=== PATIENT | female | born 1970 | race Caucasian/White ===

== ENCOUNTER 2025-02-11 05:41 | Inpatient (IN) | payer OTHER ==
[2025-02-11] MEDS ORDERED: METHOCARBAMOL 1,000 MG/10 ML VIAL ONE (06:14)
[2025-02-11] MEDS ORDERED: LEVALBUTEROL 1.25 MG/3 ML NEB ONE ×2 (06:14→06:46)
[2025-02-11] MEDS ORDERED: IPRATROPIUM BROM 0.5MG/2.5ML ONE (06:14)
[2025-02-11] MEDS ORDERED: FENTANYL CITR 100 MCG/2 ML ONE (06:14)
[2025-02-11] MEDS ORDERED: NA CHLORIDE 0.9% 100 ML ONE (06:15)
[2025-02-11 06:23] LABS: Absolute Lymphocytes (CBC) 2.6 K/uL (0.7-4.9); Hematocrit 43.0 % (36.0-45.0); Hemoglobin 14.5 g/dL (12.0-15.0); MCH 30.5 pg (27.0-35.0); MCHC 33.7 g/dL (32.0-36.0); MCV 90.4 fL (80-100); MPV 8.7 fL (7.6-11.3); Nucleated RBC Absolute Count 0.0 (0-0); Nucleated Red Blood Cells % 0.0 % (0-0); RBC Red Blood Cell Count 4.76 M/uL (3.86-4.86); White Blood Count 6.70 thou/uL (4.3-10.9)
[2025-02-11 06:33] LABS: D-Dimer 0.53 FEUug/mL (0-0.500); PT Prothrombin Time 11.2 SECONDS (10-13.0); Protime INR 0.99
--- NOTE | 2025-02-11 06:45 | EDPHYS ---
Physician Documentation [facility] Name: Irma Ackerman Age: 54 yrs Sex: Female : 1970 Arrival Date: 02/11/2025 Time: 05:41 Bed 8 Private MD: KATHLEEN Physician Kendall Villeda HPI: 02/11 06:02 This 54 yrs old Female presents to ER via EMS with complaints of Pain - right rib. cp 06:03 The patient or guardian reports chest pain that is located primarily in the left cp lateral lower chest and left flank. Onset: yesterday, and became worse this morning. Associated signs and symptoms: Pertinent positives: abdominal pain, shortness of breath. The chest pain is described as sharp. Duration: The patient or guardian reports a single episode, that is still ongoing. Modifying factors: the symptoms are aggravated by breathing, movement. Patient reports trip and fall onto [place] [employer] in yard 2 weeks ago while carrying furniture. No LOC. Patient did not seek medical attention after fall. Historical: - Allergies: 06:01 No Known Allergies; vc1 - Home Meds: 06:01 None [Active]; vc1 - PMHx: 06:01 None; vc1 - PSHx: 06:01 None; vc1 - Immunization history:: Client reports receiving the 2nd dose of the Covid vaccine. - Infectious Disease History:: Denies. - Social history:: Smoking status: Patient reports the use of cigarette tobacco products, smokes one-half pack cigarettes per day. ROS: 06:05 Constitutional: Negative for body aches, chills, fever, cp 06:05 Eyes: Negative for injury, pain, redness, and discharge, cp 06:05 ENT: Negative for drainage from ear(s), ear pain, sore throat, difficulty swallowing, 06:05 Cardiovascular: Positive for left lateral lower chest wall pain, Negative for edema, 06:05 Respiratory: Positive for shortness of breath, Negative for wheezing, 06:05 Abdomen/GI: Positive for abdominal pain, of the posterior aspect of left lateral abdomen and anterior aspect of left lateral abdomen, Negative for vomiting, diarrhea, constipation, 06:05 Back: Positive for flank pain, on the left, 06:05 : Negative for urinary symptoms, 06:05 Skin: Negative for cellulitis, rash, 06:05 Neuro: Negative for altered mental status, headache, weakness, 06:05 All other systems are negative, Exam: 06:10 Constitutional: The patient appears in no acute distress, alert, awake, cp non-diaphoretic, non-toxic, well developed, well nourished, in obvious pain, uncomfortable, 06:10 Head/Face: Normocephalic, atraumatic. cp 06:10 Eyes: Periorbital structures: appear normal, Conjunctiva: normal, no exudate, no injection, Sclera: no appreciated abnormality, Lids and lashes: appear normal, bilaterally, 06:10 ENT: External ear(s): are unremarkable, Nose: is normal, Mouth: Lips: moist, Oral mucosa: moist, Posterior pharynx: Airway: no evidence of obstruction, patent, 06:10 Neck: C-spine: vertebral tenderness, is not appreciated, crepitus, is not appreciated, ROM/movement: limited range of motion, is not appreciated, 06:10 Chest/axilla: Inspection: normal, Palpation: crepitus, is not appreciated, tenderness, that is moderate, of the left lower lateral chest wall, 06:10 Cardiovascular: Rate: normal, 06:10 Respiratory: the patient does not display signs of respiratory distress, Respirations: shallow respirations, that is moderate, Breath sounds: bronchial sounds, that are mild, are heard diffusely, stridor, is not appreciated, wheezing: that is mild, is heard diffusely, 06:10 Abdomen/GI: Inspection: abdomen appears normal, Bowel sounds: active, all quadrants, Palpation: soft, in all quadrants, moderate abdominal tenderness, in the posterior aspect of left lateral abdomen, anterior aspect of left lateral abdomen and left upper quadrant, rebound tenderness, is not appreciated, involuntary guarding, is not appreciated, 06:10 Back: pain, that is severe, of the left mid back, ROM is painful, with all movement, 06:10 Neuro: Orientation: to person, place \T\ time. Mentation: able to follow commands, Motor: moves all fours, strength is normal, 07:00 ECG was reviewed by the Attending Physician. dexter Vital Signs: 06:04 BP 114 / 75; Pulse 90; Resp 14; Pulse Ox 96% ; Weight 74.84 kg; Height 5 ft. 5 in. ; vc1 Pain 6/10; 06:35 Temp 98.4(O); ha1 06:04 Body Mass Index 27.46 (74.84 kg, 165.1 cm) vc1 06:04 Pain Scale: Adult vc1 MDM: 05:51 Medical Screening Exam initiated cp 06:16 Differential diagnosis: acute myocardial infarction, acute pericarditis, chest wall cp pain, pneumonia, pneumothorax, pulmonary embolus, rib fracture. 06:20 Transition of care: After a detail discussion of the patient's case, care is cp transferred to Kendall Villeda MD. 06:20 Awaiting: labs results, CT scan results. cp 06:36 Differential diagnosis: Blunt Chest Trauma Chest Wall Contusion. Data reviewed: vital dexter signs, nurses notes, lab test result(s), EKG, radiologic studies. Consideration of Admission/Observation Patient was admitted/placed on observation. Escalation of care including admission/observation considered. I considered the following discharge prescriptions or medication management in the emergency department Medications were administered in the Emergency Department. See MAR. Independent interpretation of the following test(s) in the Emergency Department EKG: See my EKG interpretation above. Test considered but Not performed: Ultrasound no abd usg. Historians other than the Patient: Spouse/Significant Other: well informed. Care significantly affected by the following chronic conditions: Chronic Obstructive Pulmonary Disease, tobacco abuse. Counseling: I had a detailed discussion with the patient and/or guardian regarding the historical points, exam findings, and any diagnostic results supporting the discharge/admit diagnosis, lab results, radiology results, the need for further work-up and treatment in the hospital. 02/11 06:00 Order name: Basic Metabolic Panel; Complete Time: 07:00 cp 02/11 06:00 Order name: CBC with Diff; Complete Time: 07:00 cp 02/11 06:00 Order name: D-Dimer; Complete Time: 07:00 cp 02/11 06:00 Order name: LFT's; Complete Time: 07:00 02/11 06:00 Order name: Magnesium; Complete Time: 07:00 02/11 06:00 Order name: NT PRO-BNP; Complete Time: 07:00 02/11 06:00 Order name: PT-INR; Complete Time: 07:00 02/11 06:00 Order name: Troponin HS; Complete Time: 07:00 02/11 06:00 Order name: Lipase; Complete Time: 07:00 cp 02/11 06:38 Order name: CPK dexter 02/11 07:29 Order name: CBC with Automated Diff EDMS 02/11 07:29 Order name: CBC with Automated Diff EDMS 02/11 07:29 Order name: CBC with Automated Diff EDMS 02/11 07:29 Order name: Comprehensive Metabolic Panel EDMS 02/11 07:29 Order name: Comprehensive Metabolic Panel EDMS 02/11 07:29 Order name: Comprehensive Metabolic Panel EDMS 02/11 06:00 Order name: XRAY Chest (1 view) 02/11 06:09 Order name: CT Chest For PE Angio 02/11 06:09 Order name: CT Abd/Pelvis - IV Contrast Only 02/11 06:16 Order name: INCENTIVE SPIROMETRY [facility] 02/11 06:00 Order name: Cardiac monitoring; Complete Time: 06:31 02/11 06:00 Order name: EKG - Nurse/Tech; Complete Time: 06:31 02/11 06:00 Order name: IV Saline Lock; Complete Time: 06:31 02/11 06:00 Order name: Labs collected and sent; Complete Time: 06:31 02/11 06:00 Order name: O2 Per Protocol; Complete Time: 06:31 02/11 06:00 Order name: O2 Sat Monitoring; Complete Time: 06:31 cp EC:00 Rate is 78 beats/min. Rhythm is regular. QRS Swiss is Normal. NM interval is normal. QRS dexter interval is normal. QT interval is normal. No Q waves. T waves are Normal. No ST changes noted. Clinical impression: Normal ECG and No evidence of ischemia. Interpreted by me. Reviewed by me. Administered Medications: 06:20 Drug: fentaNYL (PF) IVP 25 mcg IVP once Route: IVP; Site: right forearm; ha1 06:55 Follow up: Response: No adverse reaction; Pain is decreased kd3 06:22 Drug: Methocarbamol IVPB 1 grams IVPB once over 1 hrs; (mix in NS 100 mL) Route: IVPB; ha1 Infused Over: 1 hrs; Site: right forearm; 06:55 Follow up: IV Status: Completed infusion kd3 06:31 Drug: Levalbuterol Inhalation 1.25 mg Inhalation once Route: Inhalation; ha1 06:55 Follow up: Response: No adverse reaction kd3 06:31 Drug: Ipratropium Inhalation Aerosol 0.5 mg Inhalation once Route: Inhalation; ha1 06:55 Follow up: Response: No adverse reaction kd3 06:54 Drug: Famotidine IVP 20 mg IVP once; dilute with 10 mL 0.9% NaCl; give over 2 minutes kd3 Route: IVP; Site: right forearm; 06:55 Drug: Levalbuterol Inhalation 2.5 mg Inhalation once Route: Inhalation; kd3 06:55 Drug: NS 0.9% IV 1000 ml IV at 1 bolus Per protocol; to be given as a bolus over 60 kd3 minutes Route: IV; Rate: 1 bolus; Site: right forearm; 06:55 Drug: Ketorolac IVP 15 mg IVP once Route: IVP; Site: right forearm; kd3 06:55 Drug: Diazepam PO 10 mg PO once Route: PO; kd3 06:58 Drug: MethylPrednisoLONE IVP 125 mg IVP once Route: IVP; Site: right forearm; kd3 Disposition: 06:36 Co-signature as Attending Physician, Kendall Villeda MD I agree with the assessment and dexter plan of care. Disposition Summary: 02/11/25 06:44 Hospitalization Ordered Notes: Hospitalization Status: Inpatient Admission dexter Provider: Penelope Lockhart cha Location: Telemetry/MedSurg (Inpatient) dexter Condition: Fair dexter Problem: new dexter Symptoms: have improved dexter Bed/Room Type: Standard dexter Room Assignment: 419(02/11/25 08:33) bd Diagnosis - Fall on same level, unspecified dexter - Strain of muscle and tendon of front wall of thorax dexter - Strain of muscle and tendon of back wall of thorax dexter - COPD/ Chronic obstructive pulmonary disease with (acute) exacerbation dexter - Tobacco abuse counseling dexter - Tobacco use dexter Forms: - Medication Reconciliation Form dexter - SBAR form dexter - Leadership Thank You Letter dexter Signatures: Dispatcher [employer] Mahnaz Bentley Corey, MD MD cha Page, Corey, PA-C PA-C cp Doucette, Kyli RN RN kd3 Elena Koo RN RN vc1 Zaynab Juares RN RN ha1 Corrections: (The following items were deleted from the chart) 06:38 06:38 CREATINE PHOSPHOKINASE+C.LAB.BRZ ordered. EDMS EDMS 08:33 06:44 dexter bd
--- NOTE | 2025-02-11 06:45 | ER ---
Nurse's Notes [facility] Name: Irma Ackerman Age: 54 yrs Sex: Female : 1970 Arrival Date: 02/11/2025 Time: 05:41 Bed 8 Private MD: Diagnosis: Fall on same level, unspecified;Strain of muscle and tendon of front wall of thorax;Strain of muscle and tendon of back wall of thorax;COPD/ Chronic obstructive pulmonary disease with (acute) exacerbation;Tobacco abuse counseling;Tobacco use Presentation: 02/11 05:57 Chief complaint: EMS states: right rib pain with muscle spasms. Pt fell 2 weeks ago. vc1 Coronavirus screen: Client denies travel out of the [place] in the last 14 days. At this time, the client does not indicate any symptoms associated with coronavirus-19. Ebola Screen: Patient negative for fever greater than or equal to 101.5 degrees Fahrenheit, and additional compatible Ebola Virus Disease symptoms Patient denies exposure to infectious person. Patient denies travel to an Ebola-affected area in the 21 days before illness onset. No symptoms or risks identified at this time. Initial Sepsis Screen: Does the patient meet any 2 criteria? No. Patient's initial sepsis screen is negative. Does the patient have a suspected source of infection? No. Patient's initial sepsis screen is negative. Risk Assessment: Do you want to hurt yourself or someone else? Patient reports no desire to harm self or others. Onset of symptoms is unknown. Care prior to arrival: Medication(s) given: 5mg droperidol IV initiated. 20 GA, in the right wrist. 05:57 Method Of Arrival: EMS: [facility] vc1 05:57 Acuity: SHANNAN 3 vc1 Triage Assessment: 06:02 General: Appears in no apparent distress. uncomfortable, Behavior is calm, cooperative, vc1 appropriate for age. Pain: Complains of pain in right lateral anterior chest Pain does not radiate. Pain currently is 6 out of 10 on a pain scale. EENT: No deficits noted. No signs and/or symptoms were reported regarding the EENT system. Neuro: Level of Consciousness is awake, alert, obeys commands, Oriented to person, place, time, situation, Appropriate for age. Cardiovascular: Capillary refill < 3 seconds Patient's skin is warm and dry. Respiratory: Airway is patent Respiratory effort is even, unlabored, Respiratory pattern is regular, symmetrical. GI: No deficits noted. No signs and/or symptoms were reported involving the gastrointestinal system. : No deficits noted. No signs and/or symptoms were reported regarding the genitourinary system. Derm: Skin is intact, is healthy with good turgor, Skin is dry, Skin is normal, Reports pain that is 6 out of 10 on a pain scale. Musculoskeletal: Circulation, motion, and sensation intact. Reports pain in left lateral anterior chest. Historical: - Allergies: 06:01 No Known Allergies; vc1 - Home Meds: 06:01 None [Active]; vc1 - PMHx: 06:01 None; vc1 - PSHx: 06:01 None; vc1 - Immunization history:: Client reports receiving the 2nd dose of the Covid vaccine. - Infectious Disease History:: Denies. - Social history:: Smoking status: Patient reports the use of cigarette tobacco products, smokes one-half pack cigarettes per day. Screenin:01 [facility] ED Fall Risk Assessment (Adult) History of falling in the last 3 months, vc1 including since admission No falls in past 3 months (0 pts) Confusion or Disorientation No (0 pts) Intoxicated or Sedated No (0 pts) Impaired Gait No (0 pts) Mobility Assist Device Used No (0 pt) Altered Elimination No (0 pt) Score/Fall Risk Level 0 - 2 = Low Risk Oriented to surroundings, Maintained a safe environment, Educated pt \T\ family on fall prevention, incl call for assistance when getting out of bed, Assessed \T\ reinforced patient's understanding of fall precautions, Hourly rounding (assess needs \T\ fall precautionary measures) done. Abuse screen: Denies threats or abuse. Nutritional screening: No deficits noted. Tuberculosis screening: No symptoms or risk factors identified. Assessment: 05:49 General: Appears uncomfortable, Behavior is calm, cooperative. Pain: Complains of pain ha1 in back Pain currently is 9 out of 10 on a pain scale. Quality of pain is described as aching, Aggravated by increased activity, repositioning. Neuro: Level of Consciousness is awake, alert, obeys commands, Oriented to person, place, time, situation. Cardiovascular: Capillary refill < 3 seconds Patient's skin is warm and dry. Respiratory: Reports cough that is productive, Airway is patent Respiratory effort is even, unlabored, Respiratory pattern is regular, symmetrical. GI: Abdomen is round non-distended. : No signs and/or symptoms were reported regarding the genitourinary system. Derm: Skin is pink, warm \T\ dry. Musculoskeletal: Circulation, motion, and sensation intact. Reports pain in back. Vital Signs: 06:04 BP 114 / 75; Pulse 90; Resp 14; Pulse Ox 96% ; Weight 74.84 kg; Height 5 ft. 5 in. ; vc1 Pain 6/10; 06:35 Temp 98.4(O); ha1 06:04 Body Mass Index 27.46 (74.84 kg, 165.1 cm) vc1 06:04 Pain Scale: Adult vc1 ED Course: 05:49 Patient arrived in ED. kmf 05:49 Patient has correct armband on for positive identification. Bed in low position. Call ha1 light in reach. Side rails up X 1. Adult w/ patient. Client placed on continuous cardiac and pulse oximetry monitoring. NIBP monitoring applied. braid folder on. Door closed. Noise minimized. Warm blanket given. Pillow given. 05:51 Kendall Castillo PA-C is PHCP. cp 05:51 Kendall Villeda MD is Attending Physician. cp 05:59 Triage completed. vc1 06:01 Arm band placed on right wrist. vc1 06:04 Maintain EMS IV. Dressing intact. Good blood return noted. Site clean \T\ dry. Gauge \T\ noguera 1 site: 20 G RFA. Flushed with 10 mL NS. 06:09 Zaynab Juares RN is Primary Nurse. ha1 06:30 XRAY Chest (1 view) In Process Unspecified. EDMS 06:31 Basic Metabolic Panel Sent. ha1 06:43 Penelope Lockhart MD is Hospitalizing Provider. dexter 07:30 CT Chest For PE Angio In Process Unspecified. EDMS 07:30 CT Abd/Pelvis - IV Contrast Only In Process Unspecified. EDMS Administered Medications: 06:20 Drug: fentaNYL (PF) IVP 25 mcg IVP once Route: IVP; Site: right forearm; ha1 06:55 Follow up: Response: No adverse reaction; Pain is decreased kd3 06:22 Drug: Methocarbamol IVPB 1 grams IVPB once over 1 hrs; (mix in NS 100 mL) Route: IVPB; ha1 Infused Over: 1 hrs; Site: right forearm; 06:55 Follow up: IV Status: Completed infusion kd3 06:31 Drug: Levalbuterol Inhalation 1.25 mg Inhalation once Route: Inhalation; ha1 06:55 Follow up: Response: No adverse reaction kd3 06:31 Drug: Ipratropium Inhalation Aerosol 0.5 mg Inhalation once Route: Inhalation; ha1 06:55 Follow up: Response: No adverse reaction kd3 06:54 Drug: Famotidine IVP 20 mg IVP once; dilute with 10 mL 0.9% NaCl; give over 2 minutes kd3 Route: IVP; Site: right forearm; 06:55 Drug: Levalbuterol Inhalation 2.5 mg Inhalation once Route: Inhalation; kd3 06:55 Drug: NS 0.9% IV 1000 ml IV at 1 bolus Per protocol; to be given as a bolus over 60 kd3 minutes Route: IV; Rate: 1 bolus; Site: right forearm; 06:55 Drug: Ketorolac IVP 15 mg IVP once Route: IVP; Site: right forearm; kd3 06:55 Drug: Diazepam PO 10 mg PO once Route: PO; kd3 06:58 Drug: MethylPrednisoLONE IVP 125 mg IVP once Route: IVP; Site: right forearm; kd3 Medication: 06:02 VIS not applicable for this client. vc1 Outcome: 06:44 Decision to Hospitalize by Provider. [facility] 09:56 Patient left the ED. hb Signatures: Dispatcher [employer] EDSD Kendall Villeda MD MD cha Page, Corey, PA-C PA-C Dalia Dooley RN RN Daniela Olson RN RN kd3 Elena Koo RN RN vc1 Zaynab Juares RN RN ha1 Christine Amaro [facility]
[2025-02-11] MEDS ORDERED: DIAZEPAM 5 MG TABLET ONE (06:46)
[2025-02-11] MEDS ORDERED: KETOROLAC 30 MG/ML INJ ONE (06:46)
[2025-02-11] MEDS ORDERED: NA CHLORIDE 0.9% 1,000 ML ONE (06:47)
[2025-02-11] MEDS ORDERED: FAMOTIDINE 20 MG/2 ML VIAL IV ONE (06:47)
[2025-02-11 06:50] LABS: ALT/SGPT 24 U/L (13-56); AST/SGOT 19 U/L (15-37); Albumin 3.5 g/dL (3.4-5.0); Albumin/Globulin Ratio 1.1 (1.1-1.8); Alkaline Phosphatase 77 U/L (45-117); Anion Gap 9.9 mEq/L (5.0-15.0); BUN Blood Urea Nitrogen 13 mg/dL (7-18); Bilirubin Indirect, Calculated 0.3 mg/dL (0.2-0.8); Globulin 3.2 g/dL (2.3-3.5); Glucose Level 97 mg/dL (74-106); Lipase 36 U/L (13-75); Magnesium 2.2 mg/dL (1.6-2.4); NT PRO-BNP 145 pg/mL (<125); Potassium 3.9 mEq/L (3.5-5.1)
[2025-02-11] MEDS ORDERED: METHYLPREDNISOLONE 125 MG INJ ONE (06:56)
[2025-02-11 06:57] LABS: Troponin High Sensitivity < 3.0 pg/mL (<58.9)
--- NOTE | 2025-02-11 07:56 | RAD REPORT ---
EXAMINATION: CTA CHEST PE CLINICAL INDICATION: BLUNT CHEST TRAUMA TECHNIQUE: This examination was performed according to an angiographic protocol with 3D post-processi ng. This involves 3D reconstructions, MIPs, volume rendered images and/or shaded surface rendering. One or more of the following dose reduction techniques were used: Automated exposure control, adjustm ent of the mA and/or kV according to patient size, and/or iterative reconstruction. Unless otherwise specified, incidental findings do not require dedicated imaging follow-up. COMPARISON: No prior exam. FINDINGS: PULMONARY ARTERIES: Normal caliber. No evidence of pulmonary emboli to the subsegmental level. THORACIC AORTA: Normal caliber and configuration. LUNGS: Small opacities are present in both lung bases posteriorly. Generalized mild COPD. PLEURA: No pleural effusion. No pneumothorax. MEDIASTINUM AND LYMPH NODES: No mediastinal mass or fluid collection. Normal size mediastinal, hilar, and axillary lymph nodes. OSSEOUS STRUCTURES AND CHEST WALL: Intact. UPPER ABDOMEN: No significant abnormalities. IMPRESSION: No evidence of pulmonary emboli to the subsegmental level. COPD with mild atelectasis in both posterior lung bases.
--- NOTE | 2025-02-11 07:58 | RAD REPORT ---
EXAMINATION: CT ABDOMEN AND PELVIS WITH CONTRAST CLINICAL INDICATION: FLANK PAIN TECHNIQUE: CT abdomen and pelvis was performed, after the administration of IV contrast, as per [facility] protocol. Axial, sagittal and coronal reconstructions were obtained. One or more of the following dose reduction techniques were used: Automated exposure control, adjustment of the mA and k V according to patient size, and iterative reconstruction. Unless otherwise specified, incidental findings do not require dedicated imaging follow-up. COMPARISON: No prior exam. FINDINGS: LOWER CHEST: Mild linear opacities in both posterior lung bases. Small hiatal hernia. LIVER: Normal in size and contour. No focal lesion. Grossly unremarkable gallbladder. SPLEEN: Normal size. No focal lesion. PANCREAS: No mass, ductal dilation, or josé miguel-pancreatic fluid. ADRENALS: Normal; no mass. KIDNEYS: Normal size and contour. No hydronephrosis. 5 cm benign-appearing cyst anterior left kidney inferiorly. GASTROINTESTINAL TRACT: No evidence of free air, significant intra-abdominal free fluid, bowel obstru ction or abscess. APPENDIX: Normal appendix. LYMPH NODES: No lymphadenopathy. MUSCULOSKELETAL: No acute or suspicious osseous abnormality. ADDITIONAL FINDINGS: None. IMPRESSION: No acute abnormalities seen in the abdomen or pelvis.
--- NOTE | 2025-02-11 08:14 | RAD REPORT ---
EXAMINATION: ONE VIEW CHEST XR CLINICAL INDICATION: SOB TECHNIQUE: Frontal chest projection is submitted. Examination is limited by patient positioning and t echnique. COMPARISON: 06/06/2018 FINDINGS: The lungs are well inflated and clear. The heart is upper limit of normal in size. No displaced fract ures identified. IMPRESSION: No acute intrathoracic abnormalities.
[2025-02-11] MEDS: METHYLPREDNISOLONE 40 MG INJ IV SCH (10:45)
[2025-02-11] MEDS: ENOXAPARIN 40 MG/0.4 ML SQ SCH (10:45)
[2025-02-11] MEDS: ALBUTEROL 2.5 MG/3 ML NEB SOL NEB SCH (11:20)
[2025-02-11] MEDS: IPRATROPIUM BROM 0.5MG/2.5ML NEB SCH (11:20)
[2025-02-11 15:25] VITALS: BMI 27.3
[2025-02-11] MEDS ORDERED: FLU (Fluarix) 25-26 (6MOS UP)/PF 45 MCG/0.5 ML Syringe IM ONE (16:15)
[2025-02-11] MEDS: ACETAMINOPHEN 500 MG TAB PO PRN (16:18)
--- NOTE | 2025-02-11 17:02 | P.HP ---
Certification for Inpatient With expected LOS: >2 Midnights Patient will require the following post-hospital care: None Practitioner: I am a practitioner with admitting privileges, knowledge of patient current condition, hospital course, and medical plan of care. Services: Services provided to patient in accordance with Admission requirements found in Title 42 Section 412.3 of the Code of Federal Regulations Patient History Date of Service: 02/11/25 Reason for admission: Fluid overload History of Present Illness: Patient is a 54-year-old female with past medical history of hyperlipidemia and current smoker who reports to the ED with complaints of shortness of breath. Patient reports not being able to catch her breath and rib pain x 1 day. Denies chest pain, dizziness, and lower extremity edema. ED workup showed findings on CTA chest of Small opacities present in both lung bases posteriorly. Generalized mild COPD. Allergies No Known Allergies Allergy (Unverified 02/11/25 07:29) - Past Medical/Surgical History Has patient received pneumonia vaccine in the past: Yes Diabetic: No -: HLD -: hysterectomy - Family History Mother -: Other (see notes) Notes: COPD Father History Unknown: Yes -: Cancer - Social History Smoking Status: Current every day smoker Alcohol use: Yes CD- Drugs: No Caffeine use: Yes Place of Residence: Home Review of Systems 10-point ROS is otherwise unremarkable Respiratory: Shortness of Breath, SOB with Excertion, As per HPI Physical Examination - Vital Signs Temperature: 98.1 F Blood Pressure: 110/61 Pulse: 81 Respirations: 17 Pulse Ox (%): 91 - Physical Exam General: Alert, In no apparent distress HEENT: Atraumatic, PERRLA, Mucous membr. moist/pink, EOMI, Sclerae nonicteric Neck: Supple, 2+ carotid pulse no bruit, No LAD, Without JVD or thyroid abnormality Respiratory: Diminished, Expiratory wheezes Cardiovascular: No edema, Regular rate/rhythm, Normal S1 S2 Capillary refill: <2 Seconds Gastrointestinal: Normal bowel sounds, No tenderness Musculoskeletal: No tenderness Integumentary: No rashes Neurological: Normal gait, Normal speech, Normal strength at 5/5 x4 extr, Normal tone, Normal affect Lymphatics: No axilla or inguinal lymphadenopathy - Studies Laboratory Data (last 24 hrs) 02/11/25 02/11/25 02/11/25 06:11 06:11 06:11 WBC 6.70 Hgb 14.5 Hct 43.0 Plt Count 184 PT 11.2 INR 0.99 Sodium 140 Potassium 3.9 BUN 13 Creatinine 0.61 Glucose 97 Magnesium 2.2 Total Bilirubin 0.5 AST 19 ALT 24 Alkaline Phosphatase 77 Lipase 36 Assessment and Plan - Plan COPD exacerbation - Patient is an current everyday smoker - Not previously diagnosed with COPD - CTA of chest showing: Small opacities are present in both lung bases posteriorly. Generalized mild COPD - Eosinophils 4.6, D-dimer 0.53, BNP 145 - IV methylprednisone 40 mg every 8 hours scheduled - DuoNeb every 4 hours scheduled - Monitor respiratory status - Patient satting well on room air - Pulmonology consulted, appreciate recommendations History of hyperlipidemia - Continue home meds once reconciled Incidental finding, renal cyst - CT abdomen pelvis with: 5 cm benign-appearing cyst anterior left kidney inferiorly. - BUN 13, creatinine 0.61 - Continue to monitor renal function and consult nephrology if worsening - Patient is without complaints - Recommend outpatient follow-up imaging DVT PPx: Lovenox CODE STATUS: Full code Discharge Plan: Home Plan to discharge in: 48 Hours - Advance Directives Does patient have a Living Will: Yes Does patient have a Durable POA for Healthcare: Yes - Code Status/Comfort Care Code Status Assessed: Yes (Full code) Critical Care: No Time Spent Managing Pts Care (In Minutes): 43
[2025-02-12 06:58] LABS: Absolute Lymphocytes (CBC) 1.1 K/uL (0.7-4.9); Hematocrit 41.1 % (36.0-45.0); Hemoglobin 13.6 g/dL (12.0-15.0); MCH 29.9 pg (27.0-35.0); MCHC 33.0 g/dL (32.0-36.0); MCV 90.4 fL (80-100); MPV 9.3 fL (7.6-11.3); Nucleated RBC Absolute Count 0.0 (0-0); Nucleated Red Blood Cells % 0.0 % (0-0); RBC Red Blood Cell Count 4.55 M/uL (3.86-4.86); White Blood Count 21.40 thou/uL (4.3-10.9)
[2025-02-12 07:17] LABS: ALT/SGPT 22.0 U/L (13-56); AST/SGOT 17.0 U/L (15-37); Albumin 3.5 g/dL (3.4-5.0); Albumin/Globulin Ratio 1.1 (1.1-1.8); Alkaline Phosphatase 77.0 U/L (45-117); Anion Gap 13.0 mEq/L (5.0-15.0); BUN Blood Urea Nitrogen 9.0 mg/dL (7-18); Globulin 3.1 g/dL (2.3-3.5); Glucose Level 144.0 mg/dL (74-106); Potassium 4.0 mEq/L (3.5-5.1)
[2025-02-12] MEDS: Levofloxacin 750mg IV 750 MG/150 ML BAG IV SCH (07:53)
[2025-02-12 09:52] LABS: White Blood Cell Scan OK (OK)
[2025-02-12 09:53] LABS: Blood Morphology Comment NOT SEEN (NOT SEEN)
[2025-02-12 12:23] VITALS: O2SAT 96
--- NOTE | 2025-02-12 14:52 | P.PN ---
Subjective Date of Service: 02/12/25 Chief Complaint: New onset COPD Subjective: No new changes, Improving Physical Examination - Vital Signs Temperature: 96.9 F Blood Pressure: 126/69 Pulse: 100 Respirations: 18 Pulse Ox (%): 96 Assessment And Plan - Plan COPD exacerbation - Patient is an current everyday smoker - Not previously diagnosed with COPD - CTA of chest showing: Small opacities are present in both lung bases posteriorly. Generalized mild COPD - Eosinophils 4.6, D-dimer 0.53, BNP 145 - IV methylprednisone 40 mg every 8 hours given X24hrs, completed - DuoNeb every 4 hours scheduled - Monitor respiratory status - Patient satting well on room air - Pulmonology consulted, appreciate recommendations History of hyperlipidemia - Continue home med Incidental finding, renal cyst Left Flank Pain - CT abdomen pelvis with: 5 cm benign-appearing cyst anterior left kidney inferiorly. - BUN 13, creatinine 0.61 - Continue to monitor renal function and consult nephrology if worsening - Patient is without complaints - Urinalysis ordered, pending completion - Recommend outpatient follow-up imaging DVT PPx: Lovenox CODE STATUS: Full code Discharge Plan: Home Plan to discharge in: 48 Hours - Code Status/Comfort Care Code Status Assessed: Yes (Full Code ) Critical Care: No Time Spent Managing PTS Care (In Minutes): 23
[2025-02-12 15:48] LABS: Sqamous Epithelial <5 /HPF (None Seen); Urine Crystals Unidentified Few /HPF (None Seen); Urine Micro Reflex YN NO BILL MICROSCOPIC
[2025-02-12 17:09] VITALS: BP 116/67; TEMP 98.1
--- NOTE | 2025-02-12 18:07 | P.DS ---
Admission Date: 02/11/25 Discharge Date: 02/12/25 Disposition: ROUTINE DISCHARGE Discharge Condition: GOOD Reason for Admission: New onset COPD Brief History of Present Illness: Patient is a 54-year-old female with past medical history of hyperlipidemia and current smoker who reported to the ED with complaints of shortness of breath. Patient reported not being able to catch her breath and rib pain x 1 day. Reported that this started after she attempted to change a car tire. Denied chest pain, dizziness, and lower extremity edema. ED workup showed findings on CTA chest of Small opacities present in both lung bases posteriorly. Generalized mild COPD. Patient was admitted for observation and pulmonolgy consult. Hospital Course: C/f COPD exacerbation - Patient is an current everyday smoker and has been attempting to quit with utilizing Wellbutrin, continue at home - Not previously diagnosed with COPD. Pulmonology saw patient and cleared for discharge. Follow-up outpatient. - CTA of chest showing: Small opacities are present in both lung bases posteriorly. Generalized mild COPD - Eosinophils 4.6, D-dimer 0.53, BNP 145 - Received IV methylprednisone while inpatient with improved symptoms, instructed to follow up with PCP within 3-5 days for follow up labs - DuoNeb every 4 hours while inpatient Muscle Spasm - Flexeril PRN X3 days outpatient History of hyperlipidemia - Continue home Statin Incidental finding, renal cyst - CT abdomen pelvis with: 5 cm benign-appearing cyst anterior left kidney inferiorly. Patient reports this has been there for years and was 5cm on last imaging - Kidney function WNL - Follow up with PCP for repeat imaging in 6mnths Vital Signs/Physical Exam: Temp Pulse Resp BP Pulse Ox 98.1 F 105 H 18 116/67 96 02/12/25 16:00 02/12/25 16:00 02/12/25 16:00 02/12/25 16:00 02/12/25 16:00 General: Alert, In no apparent distress HEENT: Atraumatic, PERRLA, EOMI Neck: Supple, JVD not distended Respiratory: Clear to auscultation bilaterally, Normal air movement Cardiovascular: Regular rate/rhythm, Normal S1 S2 Gastrointestinal: Normal bowel sounds, No tenderness Musculoskeletal: No tenderness Integumentary: No rashes Neurological: Normal speech, Normal tone, Normal affect Lymphatics: No axilla or inguinal lymphadenopathy Laboratory Data at Discharge: WBC 21.40 thou/uL (4.3-10.9) H 02/12/25 06:23 Hgb 13.6 g/dL (12.0-15.0) 02/12/25 06:23 Hct 41.1 % (36.0-45.0) 02/12/25 06:23 Plt Count 192 thou/uL (152-406) 02/12/25 06:23 PT 11.2 SECONDS (10-13.0) 02/11/25 06:11 INR 0.99 02/11/25 06:11 Sodium 143 mEq/L (136-145) 02/12/25 06:23 Potassium 4.0 mEq/L (3.5-5.1) 02/12/25 06:23 BUN 9 mg/dL (7-18) 02/12/25 06:23 Creatinine 0.60 mg/dL (0.55-1.02) 02/12/25 06:23 Glucose 144 mg/dL (74-106) H 02/12/25 06:23 Magnesium 2.2 mg/dL (1.6-2.4) 02/11/25 06:11 Total Bilirubin 0.3 mg/dL (0.2-1.0) 02/12/25 06:23 AST 17 U/L (15-37) 02/12/25 06:23 ALT 22 U/L (13-56) 02/12/25 06:23 Alkaline Phosphatase 77 U/L (45-117) 02/12/25 06:23 Lipase 36 U/L (13-75) 02/11/25 06:11 Home Medications: Cyclobenzaprine HCl [Flexeril] 5 mg PO TID PRN 5 Days #15 tab 02/12/25 Ergocalciferol (Vitamin D2) [Vitamin D2] 1 cap PO EVERY 7TH DAY 02/12/25 Levothyroxine Sodium 25 mcg PO DAILY 02/12/25 Montelukast Sodium 10 mg PO BEDTIME 02/12/25 Rosuvastatin Calcium [Crestor] 40 mg PO BEDTIME 02/12/25 buPROPion HCL [Wellbutrin Xl] 1 tab PO BEDTIME 02/12/25 New Medications: Cyclobenzaprine HCl [Flexeril] 5 mg PO TID PRN 5 Days #15 tab PRN Reason: Muscle Spasms Physician Discharge Instructions: Patient to follow-up with PCP for follow-up labs within 3 to 5 days. Follow-up for repeat imaging of benign cyst with PCP in 6 months. Return to the emergency department if you develop a fever, flank pain that does not resolve with as needed Flexeril, or nausea vomiting. Continue to quit smoking cigarettes. And continue home med Wellbutrin. Diet: Low sodium Activity: No Restriction Followup: Aydin Segura MD [Primary Care Provider] - Time spent managing pt's care (in minutes): 48
== END 2025-02-12 18:24 | disposition home or self-care (01) | DRG 192 ==
LOC: ER 05:41 → ERHOLD 07:22 → 4TH 08:52
PROVIDERS: ADMIT Internal Medicine; ATTEND Internal Medicine
DX: J44.1 Chronic obstructive pulmonary disease with (acute) exacerbation (principal); E78.5 Hyperlipidemia, unspecified; M62.838 Other muscle spasm; N28.1 Cyst of kidney, acquired; S29.011A Strain of muscle and tendon of front wall of thorax, initial encounter; S29.012A Strain of muscle and tendon of back wall of thorax, initial encounter; F17.210 Nicotine dependence, cigarettes, uncomplicated; Z71.6 Tobacco abuse counseling; Z90.710 Acquired absence of both cervix and uterus; W18.30XA Fall on same level, unspecified, initial encounter; Y93.89 Activity, other specified; Y92.828 Other wilderness area as the place of occurrence of the external cause; Y99.9 Unspecified external cause status
CPT/HCPCS: 36415; 71045; 71275; 74177; 80048; 80053; 80076; 81001; 82550; 83690; 83735; 83880; 84484; 85025; 85379; 85610; 93005; 94640; 94760; 96365; 96375; 99285; J1650; J1885; J2800; J2919; J3010; J7030; J7613; J7614; J7644; Q9967